=== PATIENT | male | born 1935 | race Caucasian/White ===

== ENCOUNTER 2024-11-25 16:21 | Inpatient (IN) | payer MEDICARE, OTHER ==
[~2024-11-25] VITALS: Ht 172.7 cm; Wt 96.6 kg
[2024-11-25 17:31] LABS: EOSINOPHILS # (AUTO) 0.1 K/uL (0.0-0.7); EOSINOPHILS % (AUTO) 0.4 % (0.0-6.0); HEMATOCRIT 46 % (39-51); HEMOGLOBIN 15.5 g/dL (13.5-17.5); LYMPHOCYTES # (AUTO) 0.7 K/uL (0.8-4.8); LYMPHOCYTES % (AUTO) 2.1 % (20.0-44.0); MEAN CORPUSCULAR HEMOGLOBIN 29 PG (26.0-33.0); MEAN CORPUSCULAR HGB CONC 34 g/dl (31.0-36.0); MEAN CORPUSCULAR VOLUME 86 fL (80-96); MONOCYTES # (AUTO) 1.9 K/uL (0.1-1.30); MONOCYTES % (AUTO) 5.9 % (2.0-12.0); NEUTROPHILS # (AUTO) 29.7 K/uL (1.8-8.9); NEUTROPHILS % (AUTO) 91.6 % (43.0-81.0); PLATELET COUNT (AUTO) 136 K/uL (150-450); RED BLOOD CELL COUNT(AUTO) 5.36 MIL/uL (4.5-6.0); RED CELL DISTRIBUTION WIDTH 13.2 % (11.5-15.0)
[2024-11-25 17:37] LABS: WHITE BLOOD COUNT (AUTO) 32.4 K/uL (4.3-11.0)
[2024-11-25] MEDS: IV NS 0.9% 1,000 ML BAG IV ONE (18:00)
[2024-11-25] MEDS: VANCOMYCIN 1 GM in IV D5W 250 ML IV ONE (18:00)
[2024-11-25] MEDS: MEROPENEM 1 G in IV NS 0.9% 100 ML IV ONE (18:15)
[2024-11-25 18:27] LABS: LACTIC ACID 2.2 mmol/L (0.4-2.0)
[2024-11-25 18:27] LABS: LYMPHOCYTES % (MANUAL) 1 % (16-48); MONOCYTES % (MANUAL) 2 % (0-11.0); NEUTROPHILS % (MANUAL) 95 (42-76); REACTIVE LYMPHOCYTES 2 % (0-0)
[2024-11-25] MEDS ORDERED: AMLO-212 PO (18:31)
[2024-11-25] MEDS ORDERED: ALLO100T PO (18:31)
[2024-11-25] MEDS ORDERED: ROSU20TA2 PO (18:31)
[2024-11-25] MEDS ORDERED: MYRBETRIQ PO (18:31)
[2024-11-25] MEDS ORDERED: SOLI5TAB2 PO (18:31)
[2024-11-25] MEDS ORDERED: ASPI-1420 PO (18:31)
[2024-11-25] MEDS ORDERED: ESCI10TA PO (18:31)
[2024-11-25] MEDS ORDERED: HYDR12.55 PO (18:31)
[2024-11-25] MEDS ORDERED: OLME40TA12 PO (18:31)
[2024-11-25] MEDS ORDERED: LISI40TA13 PO (18:31)
[2024-11-25] MEDS ORDERED: SPIR25TA6 PO (18:31)
[2024-11-25 18:36] LABS: CALCIUM, SERUM 9.2 mg/dL (8.5-10.1); CARBON DIOXIDE 26 mmol/L (21-32); CHLORIDE 102 mmol/L (98-107); CREATININE 1.4 mg/dL (0.6-1.3); GLUCOSE 142 mg/dL (74-106); POTASSIUM 4.4 mmol/L (3.5-5.1); SODIUM SERUM 135 mmol/L (136-145); UREA NITROGEN, BLOOD 22 mg/dL (7-18)
[2024-11-25 18:47] LABS: INR 1.17 (0.91-1.10); PARTIAL THROMBOPLASTIN TIME 27.8 SEC (24.3-34.3); PROTHROMBIN TIME 12.3 SECS (9.2-11.1)
[2024-11-25 18:49] LABS: ALANINE AMINOTRANSFERASE 29 U/L (12-78); ALBUMIN 3.2 g/dL (3.4-5.0); ALKALINE PHOSPHATASE 69 U/L (46-116); ASPARTATE AMINOTRANSFERASE 50 U/L (15-37); BILIRUBIN,DIRECT 0.3 mg/dL (0.0-0.2); BILIRUBIN,TOTAL 1.5 mg/dL (0.2-1.0); NT-PRO BNP 4630 pg/mL (0-125); TOTAL PROTEIN, SERUM 6.9 g/dL (6.4-8.2)
[2024-11-25 20:14] LABS: APPEARANCE,URINE CLEAR (CLEAR); BILIRUBIN,URINE NEGATIVE (NEGATIVE); BLOOD, URINE 3+ Ery/uL (NEGATIVE); COLOR,URINE YELLOW (YELLOW); KETONES,URINE NEGATIVE (NEGATIVE); LEUKOCYTE ESTERASE ,URINE NEGATIVE (NEGATIVE); NITRITE, URINE NEGATIVE (NEGATIVE); PROTEIN,URINE 3+ mg/dl (NEGATIVE); UGLUCOSE NEGATIVE (NEGATIVE); UROBILINOGEN,URINE 0.2 EU/dL (0.2)
[2024-11-25 20:45] VITALS: BP 139/79; TEMP 102.2; TEMP 102.7; O2SAT 95
[2024-11-25 20:52] LABS: ADD URINE CULTURE NO; BACTERIA,URINE Few /HPF (None Seen); SQUAMOUS EPITHELIAL CELL,UR Few /HPF (None Seen); WBC,URINE 0-2 /HPF (0-3)
[2024-11-25] MEDS: ACETAMINOPHEN 325 MG TABLET PO PRN (21:18)
[2024-11-25] MEDS ORDERED: Z GUARD REMEDY 4 OZ OINT TP PRN (21:30)
[2024-11-25] MEDS: ATORVASTATIN 40 MG TABLET PO SCH (22:01)
[2024-11-25] MEDS: ENOXAPARIN SODIUM 40 MG/0.4 ML DISP.SYRIN SQ SCH (22:02)
[2024-11-25] MEDS: IV NS 0.9% 1,000 ML IV PRN (22:23)
[2024-11-25] MEDS: PIPERACI/TAZO 3.375GM/D5W 50ML PB IV ONE (22:56)
[2024-11-25] MEDS: PIPERACILLIN /TAZOBACTAM 3.375 G in IV NS 0.9% 50 ML IV SCH (23:00)
[2024-11-26] VITALS: BP 109/61; TEMP 99.1; O2SAT 96; O2SAT 98
[2024-11-26 04:00] VITALS: BP 119/77; TEMP 98.1; O2SAT 97
[2024-11-26] MEDS: PIPERACI/TAZO 3.375GM/D5W 50ML PB IV ONE (04:23)
[2024-11-26 06:53] LABS: ALBUMIN 2.4 g/dL (3.4-5.0); BILIRUBIN,DIRECT 0.3 mg/dL (0.0-0.2); BILIRUBIN,TOTAL 1.9 mg/dL (0.2-1.0); CALCIUM, SERUM 8.4 mg/dL (8.5-10.1); CREATININE 1.5 mg/dL (0.6-1.3); MAGNESIUM 2.2 mg/dL (1.8-2.4); PHOSPHORUS 3.7 mg/dL (2.5-4.9); POTASSIUM 4.7 mmol/L (3.5-5.1); TOTAL PROTEIN, SERUM 5.8 g/dL (6.4-8.2)
[2024-11-26 08:00] VITALS: BP 110/65; TEMP 97.7; O2SAT 96
[2024-11-26 08:03] LABS: BASOPHILS % (AUTO) 0.2 % (0.0-2.0); EOSINOPHILS % (AUTO) 0.1 % (0.0-6.0); HEMATOCRIT 44 % (39-51); HEMOGLOBIN 14.4 g/dL (13.5-17.5); LYMPHOCYTES # (AUTO) 0.8 K/uL (0.8-4.8); MEAN CORPUSCULAR HEMOGLOBIN 29 PG (26.0-33.0); MEAN CORPUSCULAR HGB CONC 33 g/dl (31.0-36.0); MEAN CORPUSCULAR VOLUME 89 fL (80-96); MONOCYTES # (AUTO) 1.5 K/uL (0.1-1.30); MONOCYTES % (AUTO) 7.5 % (2.0-12.0); NEUTROPHILS # (AUTO) 17.1 K/uL (1.8-8.9); NEUTROPHILS % (AUTO) 88.2 % (43.0-81.0); PLATELET COUNT (AUTO) 87 K/uL (150-450); RED CELL DISTRIBUTION WIDTH 13.7 % (11.5-15.0); WHITE BLOOD COUNT (AUTO) 19.3 K/uL (4.3-11.0)
[2024-11-26] MEDS: AMLODIPINE BESYLATE 5 MG TABLET PO SCH (09:38)
[2024-11-26] MEDS: ALLOPURINOL 100 MG TABLET PO SCH (09:38)
[2024-11-26] MEDS: ASPIRIN EC 81 MG TABLET.DR PO SCH (09:38)
[2024-11-26] MEDS: ESCITALOPRAM OXALATE (10 MG) 10 MG TABLET PO SCH (09:39)
[2024-11-26 12:00] VITALS: BP 140/95; TEMP 99; O2SAT 93
[2024-11-26] MEDS ORDERED: CEFTRIAXONE 1GM BAG (ER ONLY) 1 GM/50 ML PIGGYBACK IV SCH (13:30)
[2024-11-26] MEDS: CEFTRIAXONE 2 G in IV NS 0.9% 100 ML IV SCH (14:34)
[2024-11-26] MEDS: DOXYCYCLINE HYCLATE (100 MG) 100 MG TABLET PO SCH (14:34)
[2024-11-26 15:21] LABS: LYMPHOCYTES % (MANUAL) 1 % (16-48); MONOCYTES % (MANUAL) 4 % (0-11.0); NEUTROPHILS % (MANUAL) 95 (42-76)
[2024-11-26 15:22] LABS: ANISOCYTOSIS 1+; PLATELET ESTIMATE DECREASED
[2024-11-26 16:00] VITALS: BP 158/80; TEMP 98.6; O2SAT 96
[2024-11-26] MEDS ORDERED: VANCOMYCIN 750 MG in IV D5W 250 ML IV SCH (18:00)
[2024-11-26 20:00] VITALS: BP 145/80; TEMP 99.1; O2SAT 96
[2024-11-26 22:25] LABS: CREATININE, URINE 103.5 MG/DL (30.0-125.0); URINE TOTAL PROTEIN 215.8 mg/dL (0-11.9)
[2024-11-27] VITALS (7 sets, daily range): BP systolic 143–156; BP diastolic 82–88; TEMP 97.5–99; O2SAT 93–99
[2024-11-27 07:29] LABS: BASOPHILS % (AUTO) 0.3 % (0.0-2.0); EOSINOPHILS % (AUTO) 0.1 % (0.0-6.0); HEMATOCRIT 43 % (39-51); HEMOGLOBIN 14.2 g/dL (13.5-17.5); LYMPHOCYTES # (AUTO) 0.7 K/uL (0.8-4.8); LYMPHOCYTES % (AUTO) 5.3 % (20.0-44.0); MEAN CORPUSCULAR HEMOGLOBIN 29 PG (26.0-33.0); MEAN CORPUSCULAR HGB CONC 33 g/dl (31.0-36.0); MEAN CORPUSCULAR VOLUME 86 fL (80-96); MONOCYTES % (AUTO) 8.4 % (2.0-12.0); NEUTROPHILS # (AUTO) 10.5 K/uL (1.8-8.9); NEUTROPHILS % (AUTO) 85.9 % (43.0-81.0); PLATELET COUNT (AUTO) 115 K/uL (150-450); RED BLOOD CELL COUNT(AUTO) 4.96 MIL/uL (4.5-6.0); RED CELL DISTRIBUTION WIDTH 13.3 % (11.5-15.0); WHITE BLOOD COUNT (AUTO) 12.3 K/uL (4.3-11.0)
[2024-11-27 08:30] LABS: ALBUMIN 2.5 g/dL (3.4-5.0); BILIRUBIN,TOTAL 0.9 mg/dL (0.2-1.0); CALCIUM, SERUM 9.1 mg/dL (8.5-10.1); CREATININE 1.3 mg/dL (0.6-1.3); MAGNESIUM 2.1 mg/dL (1.8-2.4); PHOSPHORUS 2.9 mg/dL (2.5-4.9); POTASSIUM 4.2 mmol/L (3.5-5.1); TOTAL PROTEIN, SERUM 6.2 g/dL (6.4-8.2)
[2024-11-27] MEDS: NEOMY SULF/BACITRAC ZN/POLY 15 GM TUBE TP SCH (09:00)
[2024-11-27] MEDS: ALBUTEROL HALF STRENGTH 1.25 MG/3 ML VIAL.NEB NEB SCH (11:10)
[2024-11-27] MEDS: IPRATROPIUM NEB FS 0.5 MG/2.5 ML AMPUL.NEB NEB SCH (11:10)
[2024-11-27 14:49] LABS: HIV-1 p24 ANTIGEN NON REACTIVE (NONREACTIVE); HIV-1/2 ANTIBODY NON REACTIVE (NONREACTIVE)
[2024-11-28] VITALS (7 sets, daily range): BP systolic 134–139; BP diastolic 74–79; TEMP 97.7; O2SAT 95–99
[2024-11-28 02:07] LABS: HEPATITIS B CORE AB, TOTAL Positive (Negative); HEPATITIS B SURFACE AB Reactive (.)
[2024-11-28 07:07] LABS: PTH, INTACT 34 pg/mL (15-65)
[2024-11-28 07:10] LABS: CALCIUM, SERUM 9.2 mg/dL (8.5-10.1); CREATININE 1.3 mg/dL (0.6-1.3); POTASSIUM 4.3 mmol/L (3.5-5.1)
[2024-11-28] MEDS ORDERED: CEFD300C3 PO (16:09)
[2024-11-28] MEDS ORDERED: DOXY-226 PO (16:09)
[2024-11-28] MEDS: CEFTRIAXONE 2 G in IV D5W 100 ML IV SCH (16:58)
[2024-11-28] MEDS: MUPIROCIN OINT 2% 22 GM TUBE TP SCH (16:59)
== END 2024-11-28 18:30 | disposition home or self-care (01) | DRG 871 ==
LOC: ER 16:26 → TELE 19:13 → MED 11-27 11:16
PROVIDERS: ADMIT Nurse Practitioner Acute Care; ATTEND Nurse Practitioner Acute Care
DX: A41.9 Sepsis, unspecified organism (principal); J15.9 Unspecified bacterial pneumonia; N17.0 Acute kidney failure with tubular necrosis; J96.20 Acute and chronic respiratory failure, unspecified whether with hypoxia or hypercapnia; E44.1 Mild protein-calorie malnutrition; D68.59 Other primary thrombophilia; E87.1 Hypo-osmolality and hyponatremia; E87.20 Acidosis, unspecified; D69.6 Thrombocytopenia, unspecified; E88.09 Other disorders of plasma-protein metabolism, not elsewhere classified; E78.5 Hyperlipidemia, unspecified; F32.A Depression, unspecified; Z88.0 Allergy status to penicillin; D72.829 Elevated white blood cell count, unspecified; R74.01 Elevation of levels of liver transaminase levels; Z86.73 Personal history of transient ischemic attack (TIA), and cerebral infarction without residual deficits; Z86.0100 Personal history of colon polyps, unspecified; E66.01 Morbid (severe) obesity due to excess calories; I25.10 Atherosclerotic heart disease of native coronary artery without angina pectoris; Z95.5 Presence of coronary angioplasty implant and graft; K59.00 Constipation, unspecified; R59.0 Localized enlarged lymph nodes; R55 Syncope and collapse; I12.9 Hypertensive chronic kidney disease with stage 1 through stage 4 chronic kidney disease, or unspecified chronic kidney disease; N18.9 Chronic kidney disease, unspecified; W19.XXXA Unspecified fall, initial encounter; Y93.9 Activity, unspecified; Y92.009 Unspecified place in unspecified non-institutional (private) residence as the place of occurrence of the external cause; E83.9 Disorder of mineral metabolism, unspecified; Z99.81 Dependence on supplemental oxygen; G47.30 Sleep apnea, unspecified; E86.0 Dehydration; L97.519 Non-pressure chronic ulcer of other part of right foot with unspecified severity; M20.11 Hallux valgus (acquired), right foot; Z68.32 Body mass index [BMI] 32.0-32.9, adult; N28.1 Cyst of kidney, acquired
CPT/HCPCS: 36415; 70450-TC; 71045-TC; 72125-TC; 72170-TC; 76705-TC; 76770-TC; 80048-TC; 80053-TC; 80076-TC; 81001; 82550-TC; 82553; 82570-TC; 82962-TC; 83605-TC; 83735-TC; 83880; 83970; 84100-TC; 84155; 84165; 84300-TC; 84484-TC; 85025-TC; 85730-TC; 86704; 86706; 86803; 87040-TC; 87081-TC; 87086-TC; 87340; 87806; 93307-TC; 94762-TC; 94799-TC; 97110-TC; 97112-TC; 97116-TC; 97530-TC; 97535-TC; A4223; G0378; J0696; J1650; J2185; J2543; J3370; J3371; J7030; J7060